=== PATIENT | female | born 1975 | race Caucasian/White ===

== ENCOUNTER 2016-12-29 19:52 | Emergency (ER) | payer OTHER ==
[2016-12-29] MEDS ORDERED: FENTANYL 100 MCG/2 ML VIAL ONE (22:27)
[2016-12-29] MEDS ORDERED: DOXYCYCLINE HYCLATE 100 MG TABLET ONE (23:06)
== END 2016-12-29 23:18 | disposition home or self-care (01) ==
LOC: ED 19:52
DX: L02.416 Cutaneous abscess of left lower limb (principal); F11.10 Opioid abuse, uncomplicated; J45.909 Unspecified asthma, uncomplicated; F17.210 Nicotine dependence, cigarettes, uncomplicated
CPT/HCPCS: 99283 ×2; 10061 ×2; 96372; J3010; A9270